=== PATIENT | female | born 1975 | race Caucasian/White ===

== ENCOUNTER 2017-03-19 11:25 | Emergency (ER) | payer OTHER ==
[~2017-03-19] VITALS: Ht 157.5 cm; Wt 81.6 kg
[2017-03-19 11:39] VITALS: BP 130/95
[2017-03-19] MEDS ORDERED: SYN.1 PO (11:44)
[2017-03-19] MEDS ORDERED: NACL 0.9% 1,000 ML IV SCH (11:46)
--- NOTE | 2017-03-19 12:08 | NUR ---
PATIENT PRESENTS TO ED WITH C/O RUQ PAIN SINCE LAST NOC . PT STATES THE PAIN HAS GOTTEN PROGRESSIVELY WORSE . DENIES N/V/D; SKIN IS PINK/WARM/DRY; AAOX4 WITH EVEN AND STEADY GAIT; LUNGS CLEAR BL; HR EVEN AND REGULAR; PT DENIES ANY FEVER, CP, SOB, OR COUGH AT THIS TIME; PATIENT STATES PAIN OF 7/10 AT THIS TIME; VSS; ER MD MADE AWARE OF PT STATUS.
--- NOTE | 2017-03-19 12:10 | NUR ---
ER MD EVALUATING PT IN TRIAGE.
[2017-03-19] MEDS ORDERED: ONDANSETRON 4 MG/2 ML VIAL IVP ONE (12:20)
[2017-03-19] MEDS ORDERED: KETOROLAC 30 MG/ML VIAL IVP ONE (12:20)
[2017-03-19 12:35] LABS: BASOPHILS # (AUTO) 0.3 K/uL (0.00-0.22); BASOPHILS % (AUTO) 2.7 % (0.0-2.0); EOSINOPHILS # (AUTO) 0.2 K/uL (0-0.4); EOSINOPHILS % (AUTO) 1.6 % (0.0-4.0); HEMATOCRIT 45.4 % (36-48); HEMOGLOBIN 14.6 g/dL (12.0-16.0); LYMPHOCYTES # (AUTO) 2.6 K/uL (2.5-16.5); MEAN CORPUSCULAR HEMOGLOBIN 26 pg (27-31); MEAN CORPUSCULAR HGB CONC 32 g/dL (33-37); MEAN CORPUSCULAR VOLUME 80 fL (80-94); MONOCYTES # (AUTO) 0.5 K/uL (0.8-1.0); MONOCYTES % (AUTO) 4.1 % (1.7-9.3); NEUTROPHILS # (AUTO) 8.1 K/uL (1.8-7.7); NEUTROPHILS % (AUTO) 69.6 % (42.2-75.2); PLATELET COUNT (AUTO) 223 K/uL (140-450); RED CELL DISTRIBUTION WIDTH 14.2 % (11.6-13.7); WHITE BLOOD COUNT (AUTO) 11.7 K/uL (4.8-10.8)
[2017-03-19 12:44] LABS: CALCIUM 8.7 mg/dL (8.5-10.1); CARBON DIOXIDE 27.8 mmol/L (21-32); CREATININE 0.9 mg/dL (0.6-1.3); POTASSIUM 3.8 mmol/L (3.5-5.1)
[2017-03-19 12:58] LABS: ALBUMIN 3.8 g/dL (3.4-5.0); FREE T4 (FREE THYROXINE) 1.41 ng/dL (0.76-1.46); MAGNESIUM 1.9 mg/dL (1.8-2.4); THYROID STIMULATING HORMONE 0.89 uIU/mL (0.34-3.76); TOTAL BILIRUBIN 0.6 mg/dL (0.0-1.0)
[2017-03-19 13:30] LABS: APPEARANCE,URINE HAZY (CLEAR); BILIRUBIN,URINE NEGATIVE (NEGATIVE); BLOOD, URINE NEGATIVE (NEGATIVE); COLOR,URINE YELLOW (YELLOW); LEUKOCYTE ESTERASE ,URINE NEGATIVE (NEGATIVE); NITRITE, URINE NEGATIVE (NEGATIVE); PH,URINE 7.5 (5.0-9.0); PROTEIN,URINE NEGATIVE (NEGATIVE); UGLUCOSE NEGATIVE (NEGATIVE); UROBILINOGEN,URINE 0.2 EU/dL (0.2 - 1)
[2017-03-19 14:43] VITALS: BP 129/79
--- NOTE | 2017-03-19 14:43 | NUR ---
Patient discharged with v/s stable. Written and verbal after care instructions given and explained. Patient alert, oriented and verbalized understanding of instructions. Ambulatory with steady gait. All questions addressed prior to discharge. ID band removed. Patient advised to follow up with PMD. Rx of ZOFRAN & MOTRIN given. Patient educated on indication of medication including possible reaction and side effects. Opportunity to ask questions provided and answered.
== END 2017-03-19 14:43 | disposition home or self-care (01) ==
LOC: MED 11:25
DX: R10.11 Right upper quadrant pain (principal); R51 Headache; R11.0 Nausea; Z98.890 Other specified postprocedural states
CPT/HCPCS: 36415; 76705; 80053; 81003; 83690; 83735; 84439; 84443; 84703; 85025; 96361; 96374; 96375; 99285; J1885; J2405; J7030; Q0092

== ENCOUNTER 2020-09-12 06:12 | Emergency (ER) | payer SELFPAY ==
[~2020-09-12] VITALS: Ht 157.5 cm; Wt 81.6 kg
[~2020-09-12 06:12] MED LIST: SYN.1 PO
[2020-09-12 06:16] VITALS: BP 164/91
--- NOTE | 2020-09-12 06:22 | NUR ---
PT AMBULATED TO BED 03 WITH STEADY GAIT.
[2020-09-12] MEDS ORDERED: NACL 0.9% 1,000 ML IV ONE (07:10)
--- NOTE | 2020-09-12 07:10 | NUR ---
RECEIVED REPORT FROM YADIEL PLEITEZ
[2020-09-12 07:16] LABS: BASOPHILS % (AUTO) 0.2 % (0.0-2.0); EOSINOPHILS % (AUTO) 0.1 % (0.0-4.0); HEMATOCRIT 41.4 % (36-48); HEMOGLOBIN 13.7 g/dL (12.0-16.0); MEAN CORPUSCULAR HEMOGLOBIN 26 pg (27-31); MEAN CORPUSCULAR HGB CONC 33 g/dL (33-37); MEAN CORPUSCULAR VOLUME 78.4 fL (80-94); MONOCYTES # (AUTO) 0.4 K/uL (0.8-1.0); NEUTROPHILS # (AUTO) 5.2 K/uL (1.8-7.7); NEUTROPHILS % (AUTO) 78.7 % (42.2-75.2); PLATELET COUNT (AUTO) 132 K/uL (140-450); RED BLOOD CELL COUNT(AUTO) 5.28 MIL/uL (4.20-5.40); RED CELL DISTRIBUTION WIDTH 15.7 % (11.6-13.7); WHITE BLOOD COUNT (AUTO) 6.6 K/uL (4.8-10.8)
--- NOTE | 2020-09-12 07:20 | NUR ---
RECEIVED PT IN BED 3 WITH C/O URINARY URGENCY AND DRY MOUTH. DENIES N/V/D; SKIN IS PINK/WARM/DRY; AAOX4. PATIENT DENIES PAIN AT THIS TIME.PATIENT POSITIONED FOR COMFORT; HOB ELEVATED; BEDRAILS UP X2; BED DOWN. ER MD MADE AWARE OF PT STATUS.
--- NOTE | 2020-09-12 07:23 | NUR ---
20G SL ESTABLISHED RIGHT HAND. FLUIDS BEGUN.
[2020-09-12 07:29] LABS: APPEARANCE,URINE CLEAR (CLEAR); BILIRUBIN,URINE NEGATIVE (NEGATIVE); BLOOD, URINE NEGATIVE (NEGATIVE); COLOR,URINE YELLOW (YELLOW); LEUKOCYTE ESTERASE ,URINE NEGATIVE (NEGATIVE); NITRITE, URINE NEGATIVE (NEGATIVE); UGLUCOSE NEGATIVE (NEGATIVE)
[2020-09-12 07:34] LABS: ALBUMIN 3.6 g/dL (3.4-5.0); ANION GAP 12.3 (8-16); CARBON DIOXIDE 28.4 mmol/L (21-32); CREATININE 0.9 mg/dL (0.6-1.3); POTASSIUM 3.7 mmol/L (3.5-5.1); TOTAL BILIRUBIN 0.4 mg/dL (0.0-1.0)
[2020-09-12 08:57] VITALS: BP 146/78
--- NOTE | 2020-09-12 08:57 | NUR ---
Patient discharged with v/s stable. Written and verbal after care instructions given and explained. Patient verbalized understanding. Ambulatory with steady gait. All questions addressed prior to discharge. Advised to follow up with PMD. ARMBAND REMOVED
== END 2020-09-12 08:57 | disposition home or self-care (01) ==
LOC: MED 06:12
DX: E86.0 Dehydration (principal); D69.6 Thrombocytopenia, unspecified
CPT/HCPCS: 36415; 80053; 81003; 85025; 96360; 99283

== ENCOUNTER 2020-10-12 13:05 | Emergency (ER) | payer BC ==
[~2020-10-12] VITALS: Ht 154.9 cm; Wt 82.1 kg
[2020-10-12 14:07] VITALS: BP 142/90
--- NOTE | 2020-10-12 14:10 | NUR ---
EKG PERFORMED IN TRIAGE ROOM. EKG READS SINUS RHYTHM @ 83
[2020-10-12] MEDS ORDERED: ASPIRIN 325 MG TAB PO ONE (14:30)
[2020-10-12 15:18] LABS: BASOPHILS % (AUTO) 0.6 % (0.0-2.0); EOSINOPHILS % (AUTO) 0.7 % (0.0-4.0); HEMATOCRIT 41.7 % (36-48); HEMOGLOBIN 13.8 g/dL (12.0-16.0); LYMPHOCYTES # (AUTO) 1.9 K/uL (2.5-16.5); LYMPHOCYTES % (AUTO) 28.7 % (20.5-51.1); MEAN CORPUSCULAR HEMOGLOBIN 27 pg (27-31); MEAN CORPUSCULAR HGB CONC 33 g/dL (33-37); MEAN CORPUSCULAR VOLUME 80.1 fL (80-94); MONOCYTES # (AUTO) 0.4 K/uL (0.8-1.0); MONOCYTES % (AUTO) 5.5 % (1.7-9.3); NEUTROPHILS # (AUTO) 4.3 K/uL (1.8-7.7); NEUTROPHILS % (AUTO) 64.5 % (42.2-75.2); PLATELET COUNT (AUTO) 220 K/uL (140-450); RED CELL DISTRIBUTION WIDTH 17.6 % (11.6-13.7); WHITE BLOOD COUNT (AUTO) 6.7 K/uL (4.8-10.8)
[2020-10-12] MEDS ORDERED: ASPIRIN 325 MG TAB ONE (15:33)
[2020-10-12 15:35] LABS: ALBUMIN 4.1 g/dL (3.4-5.0); ANION GAP 11.8 (8-16); CREATININE 0.9 mg/dL (0.6-1.3); POTASSIUM 3.8 mmol/L (3.5-5.1); TOTAL BILIRUBIN 0.6 mg/dL (0.0-1.0)
--- NOTE | 2020-10-12 18:29 | NUR ---
Patient discharged with v/s stable. Written and verbal after care instructions given and explained. Patient verbalized understanding. Ambulatory with steady gait. All questions addressed prior to discharge. Advised to follow up with PMD.
== END 2020-10-12 18:29 | disposition home or self-care (01) ==
LOC: MED 13:05
DX: R07.9 Chest pain, unspecified (principal); E03.9 Hypothyroidism, unspecified; Z79.899 Other long term (current) drug therapy; Z98.890 Other specified postprocedural states
CPT/HCPCS: 36415; 71045; 80053; 84484; 85025; 99285

== ENCOUNTER 2023-02-01 04:35 | Emergency (ER) | payer SELFPAY ==
[~2023-02-01] VITALS: Ht 157.5 cm; Wt 81.6 kg
--- NOTE | 2023-02-01 04:50 | NUR ---
Pt triaged and placed in ED RM 07. Report given to YADIEL Dominguez.
--- NOTE | 2023-02-01 04:52 | NUR ---
Patient resting in bed, A/Ox4, chest rise and fall symmetrical, no s/s of distress, on monitor
[2023-02-01 04:53] VITALS: BP 148/71
[2023-02-01] MEDS ORDERED: ALUMINUM HYD/MAG/SIMETHICONE 30 ML UDC PO ONE (05:00)
[2023-02-01 06:11] LABS: BASOPHILS # (AUTO) 0.1 K/uL (0.00-0.22); BASOPHILS % (AUTO) 0.5 % (0.0-2.0); EOSINOPHILS # (AUTO) 0.2 K/uL (0-0.4); EOSINOPHILS % (AUTO) 1.4 % (0.0-4.0); HEMATOCRIT 40.7 % (36-48); HEMOGLOBIN 13.5 g/dL (12.0-16.0); LYMPHOCYTES # (AUTO) 3.1 K/uL (2.5-16.5); LYMPHOCYTES % (AUTO) 25.9 % (20.5-51.1); MEAN CORPUSCULAR HEMOGLOBIN 26 pg (27-31); MEAN CORPUSCULAR HGB CONC 33 g/dL (33-37); MEAN CORPUSCULAR VOLUME 77.4 fL (80-94); MONOCYTES # (AUTO) 0.6 K/uL (0.8-1.0); MONOCYTES % (AUTO) 5.3 % (1.7-9.3); NEUTROPHILS # (AUTO) 7.9 K/uL (1.8-7.7); NEUTROPHILS % (AUTO) 66.9 % (42.2-75.2); PLATELET COUNT (AUTO) 186 K/uL (140-450); RED BLOOD CELL COUNT(AUTO) 5.26 MIL/uL (4.20-5.40); RED CELL DISTRIBUTION WIDTH 16.2 % (11.6-13.7); WHITE BLOOD COUNT (AUTO) 11.8 K/uL (4.8-10.8)
--- NOTE | 2023-02-01 06:34 | NUR ---
Patient resting in bed, A/Ox4, chest rise and fall symmetrical, no s/s of distress, on monitor
[2023-02-01 06:38] LABS: ALBUMIN 3.8 g/dL (3.4-5.0); ANION GAP 15.8 (8-16); CARBON DIOXIDE 22.6 mmol/L (21-32); POTASSIUM 3.4 mmol/L (3.5-5.1); TOTAL BILIRUBIN 0.7 mg/dL (0.0-1.0)
--- NOTE | 2023-02-01 06:57 | NUR ---
ER physician speaking with patient.
--- NOTE | 2023-02-01 07:23 | NUR ---
Change of shift report given to AM shift Nurse Raiza COTTO. AM shift Nurse Raiza RN verbalized understanding of report, no further questions.
--- NOTE | 2023-02-01 07:35 | NUR ---
pt awake and alert in bed, reports chest pain has improved and is mild and dull at this time. no other symptoms. vss on monitor. breathing even and unlabored.
[2023-02-01 09:00] VITALS: BP 130/79
== END 2023-02-01 09:00 | disposition home or self-care (01) ==
LOC: MED 04:35
DX: R07.9 Chest pain, unspecified (principal); R51.9 Headache, unspecified; R11.0 Nausea; E03.9 Hypothyroidism, unspecified; Z79.899 Other long term (current) drug therapy
CPT/HCPCS: 36415; 71045; 80053; 83880; 84484; 85025; 93005; 99285; Q0092

== ENCOUNTER 2023-06-07 17:45 | Emergency (ER) | payer MEDICAID, OTHER ==
[~2023-06-07] VITALS: Ht 157.5 cm; Wt 81.6 kg
[2023-06-07 18:01] VITALS: BP 154/91; PULSE 95; RESP 18; TEMP 97.9; O2SAT 100
[2023-06-07] MEDS ORDERED: KETOROLAC 60 MG/2 ML VIAL IM ONE (18:20)
[2023-06-07] MEDS ORDERED: NACL 0.9% 1,000 ML IV SCH (18:20)
[2023-06-07] MEDS ORDERED: KETOROLAC 30 MG/ML VIAL IVP ONE (18:20)
[2023-06-07 18:38] VITALS: O2SAT 100
[2023-06-07 18:43] VITALS: BP 153/91; PULSE 95; RESP 18; TEMP 97.9; O2SAT 100
[2023-06-07] MEDS ORDERED: IBUP-2213 PO (19:34)
[2023-06-07] MEDS ORDERED: HYDR-5191 PO (19:34)
== END 2023-06-07 19:44 | disposition home or self-care (01) ==
LOC: MED 17:45
DX: R10.11 Right upper quadrant pain (principal); Z79.899 Other long term (current) drug therapy
CPT/HCPCS: 81002; 81025; 96372; 99283; J1885

== ENCOUNTER 2023-08-25 18:14 | Emergency (ER) | payer OTHER ==
[~2023-08-25] VITALS: Ht 157.5 cm; Wt 91.2 kg
[~2023-08-25 18:14] MED LIST changes: +HYDR-5191 PO; +IBUP-2213 PO
[2023-08-25 18:48] VITALS: BP 154/90; PULSE 92; RESP 18; TEMP 98.4; O2SAT 100
[2023-08-25] MEDS ORDERED: MECLIZINE 25 MG TAB PO ONE (19:25)
[2023-08-25] MEDS ORDERED: MECL-303 PO (20:07)
== END 2023-08-25 20:10 | disposition home or self-care (01) ==
LOC: MED 18:14
DX: H81.392 Other peripheral vertigo, left ear (principal); Z79.899 Other long term (current) drug therapy
CPT/HCPCS: 99282; J8597